=== PATIENT | male | born 2000 | race Hispanic/Latino ===

== ENCOUNTER 2022-08-16 08:05 | Day surgery (SDC) | payer OTHER ==
[~2022-08-16] VITALS: Ht 167.6 cm; Wt 67.9 kg
[~2022-08-16 08:05] MED LIST: NS 1,000 ML IV ONE
[2022-08-16] MEDS ORDERED: fentaNYL 100 MCG/2 ML INJECTION As Ordered ONE (09:45)
[2022-08-16] MEDS ORDERED: LIDOCAINE 2% 100MG/5ML SDV (FOR ANES.) As Ordered ONE (09:45)
[2022-08-16] MEDS ORDERED: propofoL 500 MG/50 ML VIAL As Ordered ONE (09:45)
[2022-08-16 10:20] VITALS: BP 127/66
== END 2022-08-16 10:37 | disposition home or self-care (01) ==
LOC: M OPP 08:05
PROVIDERS: ATTEND Internal Medicine Gastroenterology
DX: K21.00 Gastro-esophageal reflux disease with esophagitis, without bleeding (principal); R13.10 Dysphagia, unspecified
CPT/HCPCS: 43239; 43249; 88305; J3010

== ENCOUNTER 2023-12-19 14:38 | Outpatient (CLI) | payer OTHER ==
[~2023-12-19] VITALS: Ht 167.6 cm; Wt 63.6 kg
[2023-12-19 15:15] VITALS: BP 131/83; O2SAT 100
[2023-12-19] MEDS: methylPREDNISolone 1,000 MG, VIAL MATE ADAPTER 1 EACH in NS 250 ML IV ONE (15:22)
[2023-12-19 16:39] VITALS: BP 126/69; O2SAT 100
== END 2023-12-19 16:40 ==
LOC: M INFU 14:38
PROVIDERS: ATTEND Psychiatry & Neurology Neurology
DX: G35 Multiple sclerosis (principal)
CPT/HCPCS: 96365; J2919

== ENCOUNTER 2023-12-20 14:35 | Outpatient (CLI) | payer OTHER ==
[2023-12-20 15:00] VITALS: BP 142/64; O2SAT 98
[2023-12-20] MEDS: methylPREDNISolone 1,000 MG, VIAL MATE ADAPTER 1 EACH in NS 250 ML IV ONE (15:13)
[2023-12-20 16:21] VITALS: BP 133/63; O2SAT 100
== END 2023-12-20 16:25 ==
LOC: M INFU 14:35
PROVIDERS: ATTEND Psychiatry & Neurology Neurology
DX: G35 Multiple sclerosis (principal)
CPT/HCPCS: 96365; J2919

== ENCOUNTER 2023-12-21 15:00 | Outpatient (CLI) | payer OTHER ==
[2023-12-21 15:00] VITALS: BP 123/59; O2SAT 98
[2023-12-21] MEDS: methylPREDNISolone 1,000 MG, VIAL MATE ADAPTER 1 EACH in NS 250 ML IV ONE (15:10)
[2023-12-21 16:15] VITALS: BP 119/58; O2SAT 100
== END 2023-12-21 16:20 ==
LOC: M INFU 15:00
PROVIDERS: ATTEND Psychiatry & Neurology Neurology
DX: G35 Multiple sclerosis (principal)
CPT/HCPCS: 96365; J2919

== ENCOUNTER 2023-12-22 14:30 | Outpatient (CLI) | payer OTHER ==
[~2023-12-22] VITALS: Ht 167.6 cm; Wt 63.6 kg
[2023-12-22 14:45] VITALS: BP 128/59; O2SAT 97
[2023-12-22] MEDS: methylPREDNISolone 1,000 MG, VIAL MATE ADAPTER 1 EACH in NS 250 ML IV ONE (15:03)
[2023-12-22 16:13] VITALS: O2SAT 99
== END 2023-12-22 16:20 | disposition home or self-care (01) ==
LOC: M INFU 14:30
PROVIDERS: ATTEND Psychiatry & Neurology Neurology
DX: G35 Multiple sclerosis (principal)
CPT/HCPCS: 96365; J2919

== ENCOUNTER 2023-12-23 15:06 | Outpatient (CLI) | payer OTHER ==
[~2023-12-23] VITALS: Ht 167.6 cm; Wt 63.6 kg
[2023-12-23 15:00] VITALS: BP 135/77; O2SAT 98
[2023-12-23] MEDS: methylPREDNISolone 1,000 MG, VIAL MATE ADAPTER 1 EACH in NS 250 ML IV ONE (15:06)
[2023-12-23 16:06] VITALS: BP 161/80; O2SAT 99
== END 2023-12-23 16:10 ==
LOC: M INFU 15:06
PROVIDERS: ATTEND Psychiatry & Neurology Neurology
DX: G35 Multiple sclerosis (principal)
CPT/HCPCS: 96365; J2919

== ENCOUNTER 2024-05-16 10:41 | Outpatient (CLI) | payer OTHER ==
[2024-05-16] VITALS (10 sets, daily range): BP systolic 117–134; BP diastolic 22–81; TEMP 97–98.9; O2SAT 97–100
[~2024-05-16] VITALS: Ht 167.6 cm; Wt 62.0 kg
[2024-05-16] MEDS: methylPREDNISolone 125MG 2ML VIAL IV ONE (11:19)
[2024-05-16] MEDS: diphenhydrAMINE 25MG CAP PO ONE (11:19)
[2024-05-16] MEDS: ACETAMINOPHEN 650 MG PO ONE (11:19)
[2024-05-16] MEDS: OCRELIZUMAB 300 MG in NS 250 ML IV ONE (11:58)
[2024-05-16] MEDS: diphenhydrAMINE 50MG/ML VIAL IV ONE (14:23)
== END 2024-05-16 16:45 ==
LOC: M INFU 10:41
PROVIDERS: ATTEND Psychiatry & Neurology Neurology
DX: G35 Multiple sclerosis (principal)
CPT/HCPCS: 96365; 96366; 96375; J1200; J2350; J2919

== ENCOUNTER 2024-05-31 11:30 | Outpatient (CLI) | payer OTHER ==
[~2024-05-31] VITALS: Ht 167.6 cm; Wt 61.4 kg
[2024-05-31 11:30] VITALS: BP 119/79; O2SAT 100
[2024-05-31] MEDS: methylPREDNISolone 125MG 2ML VIAL IV ONE (11:43)
[2024-05-31] MEDS: ACETAMINOPHEN 650 MG PO ONE (11:44)
[2024-05-31] MEDS: diphenhydrAMINE 25MG CAP PO ONE (11:44)
[2024-05-31] MEDS: OCRELIZUMAB 300 MG in NS 250 ML IV ONE (12:24)
[2024-05-31 13:00] VITALS: BP 117/68; O2SAT 100
[2024-05-31 13:30] VITALS: BP 119/71; O2SAT 100
[2024-05-31 14:00] VITALS: BP 116/56; O2SAT 98
[2024-05-31 15:00] VITALS: BP 124/68; O2SAT 99
[2024-05-31 15:30] VITALS: BP 130/61; O2SAT 100
== END 2024-05-31 15:30 ==
LOC: M INFU 11:30
PROVIDERS: ATTEND Psychiatry & Neurology Neurology
DX: G35 Multiple sclerosis (principal)
CPT/HCPCS: 96365; 96366; 96375; J2350; J2919